=== PATIENT | female | born 1940 | race Hispanic/Latino ===

== ENCOUNTER 2025-07-07 11:23 | Outpatient (CLI) | payer OTHER | END 2025-07-07 11:24 | disposition home or self-care (01) | LOC: MADRAD 11:23 | PROVIDERS: ATTEND Nurse Practitioner Family | DX: M25.552 Pain in left hip (principal); Z96.661 Presence of right artificial ankle joint; Z87.81 Personal history of (healed) traumatic fracture; Z98.890 Other specified postprocedural states ==